=== PATIENT | male | born 1985 | race Caucasian/White ===

== ENCOUNTER 2016-11-29 03:29 | Emergency (ER) | payer SELFPAY ==
[~2016-11-29] VITALS: Ht 170.2 cm; Wt 68.0 kg
[2016-11-29 05:30] VITALS: BP 118/86
== END 2016-11-29 05:30 ==
LOC: ER 03:38
DX: F10.120 Alcohol abuse with intoxication, uncomplicated (principal); R51 Headache; F17.210 Nicotine dependence, cigarettes, uncomplicated; Z91.011 Allergy to milk products; V49.3XXA Car occupant (driver) (passenger) injured in unspecified nontraffic accident, initial encounter; Y93.89 Activity, other specified; Y99.8 Other external cause status; Y92.410 Unspecified street and highway as the place of occurrence of the external cause
CPT/HCPCS: 70450